=== PATIENT | female | born 1955 | race Native Hawaiian/Other Pacific Islander ===

== ENCOUNTER 2016-07-09 10:09 | Outpatient (CLI) | payer BC ==
[~2016-07-09 10:09] MED LIST: ALBU90AE13 INH; ATEN50TA36 PO; CIPRO500 MG PO; CITALOPRAM20 MG PO; DIOVAN HC2 PO; FLUT0.05 NAS; GLYB5TAB65 PO; METF100038 PO; METF500T PO; METO50TA27 PO; REQUIP XL2 MG PO; SPIRONOLACT25 MG PO; TRAM50TA PO; VENLAFAXINE150 M1 PO; XALATAN0.005 % OP; XANAX XR0.5 MG PO; Z-PAK PO
== END 2016-07-09 11:15 | disposition home or self-care (01) ==
LOC: RAD 10:09
DX: Z12.31 Encounter for screening mammogram for malignant neoplasm of breast (principal); Z13.820 Encounter for screening for osteoporosis
CPT/HCPCS: G0202-TC

== ENCOUNTER 2017-07-22 10:07 | Outpatient (CLI) | payer BC | END 2017-07-22 23:12 | disposition home or self-care (01) | LOC: MAMMO 10:07 | DX: Z12.31 Encounter for screening mammogram for malignant neoplasm of breast (principal) ==

== ENCOUNTER 2018-08-11 08:25 | Outpatient (CLI) | payer OTHER | END 2018-08-11 20:40 | disposition home or self-care (01) | LOC: MAMMO 08:25 | DX: Z12.31 Encounter for screening mammogram for malignant neoplasm of breast (principal) ==

== ENCOUNTER 2020-03-14 08:15 | Outpatient (CLI) | payer OTHER | END 2020-03-14 19:24 | disposition home or self-care (01) | LOC: MAMMO 08:15 | PROVIDERS: ATTEND Internal Medicine | DX: Z12.31 Encounter for screening mammogram for malignant neoplasm of breast (principal); Z13.820 Encounter for screening for osteoporosis; N95.8 Other specified menopausal and perimenopausal disorders ==

== ENCOUNTER 2022-04-23 12:19 | Outpatient (CLI) | payer OTHER, MEDICARE ==
[2022-04-23 12:53] LABS: PLATELET COUNT 369 K/uL (152-353)
[2022-04-23 14:26] LABS: POTASSIUM 4.2 mmol/L (3.6-5.2)
== END 2022-04-23 19:17 | disposition home or self-care (01) ==
LOC: LAB 12:19
PROVIDERS: ATTEND Internal Medicine
DX: Z00.00 Encounter for general adult medical examination without abnormal findings (principal); E11.9 Type 2 diabetes mellitus without complications; Z13.820 Encounter for screening for osteoporosis; E55.9 Vitamin D deficiency, unspecified
CPT/HCPCS: 80053; 80061; 81002; 82306; 83036; 84439; 84443; 85027

== ENCOUNTER 2022-05-07 08:44 | Outpatient (CLI) | payer OTHER, MEDICARE | END 2022-05-07 20:11 | disposition home or self-care (01) | LOC: RAD 08:44 | PROVIDERS: ATTEND Internal Medicine | DX: Z12.31 Encounter for screening mammogram for malignant neoplasm of breast (principal); Z13.820 Encounter for screening for osteoporosis; N95.8 Other specified menopausal and perimenopausal disorders ==

== ENCOUNTER 2022-05-20 09:36 | Outpatient (CLI) | payer OTHER, MEDICARE | END 2022-05-20 20:49 | disposition home or self-care (01) | LOC: MAMMO 09:36 | PROVIDERS: ATTEND Internal Medicine | DX: R92.8 Other abnormal and inconclusive findings on diagnostic imaging of breast (principal) ==

== ENCOUNTER 2022-06-08 09:01 | Outpatient (CLI) | payer OTHER, MEDICARE | END 2022-06-08 19:19 | disposition home or self-care (01) | LOC: NM 09:01 | PROVIDERS: ATTEND Specialist | DX: I10 Essential (primary) hypertension (principal); I25.10 Atherosclerotic heart disease of native coronary artery without angina pectoris; E11.9 Type 2 diabetes mellitus without complications; R06.02 Shortness of breath; E66.9 Obesity, unspecified | CPT/HCPCS: A9500 ==

== ENCOUNTER 2022-10-18 12:46 | Outpatient (CLI) | payer OTHER, MEDICARE ==
[2022-10-18 13:04] LABS: PLATELET COUNT 377 K/uL (152-353)
[2022-10-18 13:27] LABS: POTASSIUM 4.1 mmol/L (3.6-5.2)
== END 2022-10-18 19:09 | disposition home or self-care (01) ==
LOC: LAB 12:46
PROVIDERS: ATTEND Internal Medicine
DX: E11.9 Type 2 diabetes mellitus without complications (principal); R82.998 Other abnormal findings in urine
CPT/HCPCS: 80053; 80061; 81000; 83036; 84439; 84443; 85027; 87086; 87088